=== PATIENT | female | born 1995 | race Caucasian/White ===

== ENCOUNTER 2018-03-11 04:57 | Emergency (ER) | payer SELFPAY ==
[~2018-03-11] VITALS: Ht 170.2 cm; Wt 52.2 kg
--- NOTE | 2018-03-11 05:00 | NUR ---
ED Nurse Note: Patient BIBA [address] from home c/o ETOH. Pt disoriented and asleep. 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 VSS.
--- NOTE | 2018-03-11 05:18 | Emergency Room Report ---
History of Present Illness General Chief Complaint: Alcohol Intoxication Source: Patient Present Illness HPI Is a 22-year-old female with no cerumen past medical history. She presents with chief complaint alcohol intoxication. Roommate called 911 because patient was vomiting and had emesis. She was hyperventilating. She was disoriented. Friend said she had 8 drinks tonight. Unable to get any other history from patient because of intoxication. Allergies: Coded Allergies: No Known Allergies (Unverified , 03/11/18) Patient History Past Medical History: see triage record, old chart reviewed Past Surgical History: none Pertinent Family History: none Social History: Reports: alcohol use Last Menstrual Period: UNK Now: No Immunizations: other Reviewed Nursing Documentation: PMH: Agreed; PSxH: Agreed Nursing Documentation-PMH Past Medical History: No Stated History Review of Systems Eye: Denies: eye pain, blurred vision ENT: Denies: ear pain, nose congestion, throat swelling Respiratory: Denies: cough, shortness of breath Cardiovascular: Denies: chest pain, palpitations Gastrointestinal: Denies: abdominal pain, diarrhea, nausea, vomiting Musculoskeletal: Denies: back pain, joint pain Skin: Denies: rash Neurological: Denies: headache, numbness Endocrine: Denies: increased thirst, increased urine Hematologic/Lymphatic: Denies: easy bruising All Other Systems: negative except mentioned in HPI Physical Exam Vital Signs Date Time Temp Pulse Resp B/P (MAP) Pulse Ox O2 Delivery O2 Flow Rate FiO2 03/11/18 04:56 98.4 90 16 130/88 100 Room Air vitals normal Sp02 EP Interpretation: reviewed, normal General Appearance: well appearing, no apparent distress, other - Intoxicated and sleepy Head: normocephalic, atraumatic Eyes: bilateral eye PERRL, bilateral eye EOMI ENT: hearing grossly normal, normal pharynx Neck: full range of motion, supple, no meningismus Respiratory: chest non-tender, lungs clear, normal breath sounds Cardiovascular #1: regular rate, rhythm, no murmur Gastrointestinal: normal bowel sounds, non tender, no mass, no organomegaly, no bruit, non-distended Musculoskeletal: back normal, normal range of motion Neurologic: grossly normal Skin: warm/dry Medical Decision Making Diagnostic Impression: Primary Impression: Acute alcoholic intoxication Qualified Codes: F10.920 - Alcohol use, unspecified with intoxication, uncomplicated ER Course Patient with acute alcohol intoxication. No trauma to warrant CT scan or x- rays. We'll observe until she is more awake. Afterward can be discharged to roommates and friends. Last Vital Signs Date Time Temp Pulse Resp B/P (MAP) Pulse Ox O2 Delivery O2 Flow Rate FiO2 03/11/18 04:56 98.4 90 16 130/88 100 Room Air Status: improved Disposition: HOME, SELF-CARE Condition: Stable Scripts No Active Prescriptions or Reported Meds Patient Instructions: Alcohol Intoxication, [id number] Additional Instructions: Follow-up with your doctor in 7 days. Abstain from drinking to excess. Return if worse. Chele Loco MD Mar 11, 2018 05:18
--- NOTE | 2018-03-11 05:29 | NUR ---
ED Nurse Note: Blood and urine collected; sent down to lab.
[2018-03-11 05:32] VITALS: BP 130/88
--- NOTE | 2018-03-11 06:15 | NUR ---
ED Nurse Note: Family friend / significant other to be notified when pt wakes up.
[2018-03-11 07:56] VITALS: BP 112/89
--- NOTE | 2018-03-11 07:57 | NUR ---
ED Nurse Note:pt. is still sleeping, on cardiac cath tech no signs of distress noted
--- NOTE | 2018-03-11 09:50 | NUR ---
ED Nurse Note:pt. is awake and A/Ox4 ambulated to the bathroom
[2018-03-11 09:53] VITALS: BP 110/71
[2018-03-11 10:30] VITALS: BP 110/71
--- NOTE | 2018-03-11 10:32 | NUR ---
ED Nurse Note:pt. was cleared for d/c by ER MD she received d/c instructions and left ER with glenis silveira and friend via car
== END 2018-03-11 10:33 | disposition home or self-care (01) ==
LOC: EDBD 04:57 → EMR 05:56
DX: F10.129 Alcohol abuse with intoxication, unspecified (principal); R11.10 Vomiting, unspecified
CPT/HCPCS: 36415; 96361; 96374; 99284; G0480; J2405; 80329